=== PATIENT | male | born 1995 | race Caucasian/White ===

== ENCOUNTER 2019-11-10 10:48 | Emergency (ER) | payer OTHER, SELFPAY ==
--- NOTE | 2019-11-10 11:07 | ED.URI ---
HPI - URI/Sore Throat General Chief Complaint: Fever Stated Complaint: Sore throat Source: patient Mode of arrival: ambulatory Limitations: no limitations History of Present Illness HPI Narrative: 24-year-old complains of mild discomfort in the notes of his anterior neck which started 2 or 3 days ago. He had a temperature yesterday of 100.5 and today of 101.5. He the pain is dull and persistent. He denies headache, body ache sore throat shortness of breath nausea vomiting or diarrhea. He states he occasionally has a cough but that is not new. He was in [place] about 6 weeks ago. He has been sick since leading up until 2 or 3 days ago. No contact with Covid-19 infected individuals. Related Data Home Medications Medication Instructions Recorded Confirmed No Home Medications 11/10/19 11/10/19 Allergies Allergy/AdvReac Type Severity Reaction Status Date / Time No Known Allergies Allergy Unverified 04/11/15 16:35 Review of Systems Constitutional: Constitutional: Reports no additional constitutional complaints ENT: Reports system reviewed and no additional complaints, except as documented Respiratory: Respiratory: Reports no additional respiratory complaints Gastrointestinal: Gastrointestinal: Denies loose stools, Denies nausea and Denies vomiting Integumentary/Breasts: Comments: No rash PMFSH Social History Social History (Updated 11/10/19 @ 11:22 by Can Swan MD) Smoking packs per day: 1 Smoking cigarettes per day: 20.0 Years smoked: 4 Smoking pack-years: 4.00 Exam Const: General: cooperative, healthy appearing and no acute distress HENMT: General nose exam: Normal external nose present and Normal nares present Face and sinus: sinuses nontender Mouth: Yes Normal oral and palatal mucosa present and Yes moist mucous membranes Throat: posterior oropharynx normal Neck: Neck: lymphadenopathy (1+ tonsillar nodes, tender) Chest: Chest palpation & inspection: normal inspection of the chest Resp: Effort & Inspection: normal respiratory effort Auscultation: clear to auscultation bilaterally Course Course Emergency Course: No change. Occasional brief cough Vital Signs Vital signs: Vital Signs Temperature 36.6 C 11/10/19 11:18 Pulse Rate 89 11/10/19 11:18 Respiratory Rate 18 11/10/19 11:18 Blood Pressure 169/92 H 11/10/19 11:18 Pulse Oximetry 100 03/24/20 11:18 Temperature 36.6 C 11/10/19 11:18 Pulse Rate 89 11/10/19 11:18 Respiratory Rate 18 11/10/19 11:18 Blood Pressure 169/92 H 11/10/19 11:18 Pulse Oximetry 100 11/10/19 11:18 MDM - URI/Sore Throat MDM Narrative Medical decision making narrative: Not at high risk for Covid19. Labs c/w viral syndrome. Lab Data Attestation: I reviewed the patient's lab results. Labs: Lab Results 11/10/19 Range/Units 11:11 Influenza Type A Ag Negative (Negative) Influenza Type B Ag Positive A (Negative) Grp A Beta Strep Ag Negative Discharge Plan Discharge Clinical Impression: Upper respiratory infection, Adenopathy, cervical Patient Disposition: Home, Self-Care Condition: Stable Instructions: Antibiotic Form, Lymphadenopathy (ED), Viral Syndrome (ED) Additional Instructions: Return if worsening of symptoms or failure to resolve in 5 days. Avoid contact with others when running a fever. Prescriptions: No Action No Home Medications RF: 0 Follow-up/Referrals: Mayra Ervin MD [Primary Care Provider] - Time of Disposition: 12:13
[2019-11-10 11:18] VITALS: BP 169/92; PULSE 89; RESP 18; TEMP 36.6; O2SAT 100
[2019-11-10 11:43] LABS: Influenza Control Valid (Valid)
== END 2019-11-10 12:15 | disposition home or self-care (01) ==
PROVIDERS: Emergency Provider Family Medicine; PCP Internal Medicine
DX: J06.9 Acute upper respiratory infection, unspecified (principal); R59.0 Localized enlarged lymph nodes
CPT/HCPCS: 87081; 87804; 87880; 99283

== ENCOUNTER 2021-03-08 21:01 | Emergency (ER) | payer OTHER, SELFPAY ==
[2021-03-08 21:30] VITALS: BP 123/70; PULSE 72; RESP 20; O2SAT 100
[2021-03-08 21:36] VITALS: BP 114/68; PULSE 74; RESP 20; TEMP 36.7; O2SAT 100
[2021-03-08 21:38] LABS: Basophils Absolute Auto 0.05 K/mm3 (0.00-0.10); Basophils Percent Auto 0.6 % (0.0-1.0); Eosinophils Absolute Auto 0.16 K/mm3 (0.02-0.50); Eosinophils Percent Auto 1.8 % (1.0-6.0); Hematocrit 38.3 % (40.0-54.0); Hemoglobin 13.2 g/dL (14.0-18.0); Immature Granulocyte Absolute 0.03 K/mm3 (0.00-0.00); Immature Granulocyte Percent A 0.3 % (0.0-0.0); Lymphocytes Absolute Auto 2.51 K/mm3 (1.10-4.50); Lymphocytes Percent Auto 28.3 % (18.0-42.0); Mean Corpuscular HGB Conc 34.5 g/dL (32.0-36.0); Mean Corpuscular Hemoglobin 30.7 pg (27.0-31.0); Mean Corpuscular Volume 89.1 fL (78.0-102.0); Mean Platelet Volume 9.9 fl (8.7-11.0); Neutrophils Absolute Auto 5.3 K/mm3 (1.7-7.2); Platelet Count Result 279 K/mm3 (150-420); White Blood Count 8.9 K/mm3 (4.8-10.8)
[2021-03-08 21:44] VITALS: PULSE 73
[2021-03-08 21:52] LABS: Alanine Aminotransferase 26 U/L (16-63); Alkaline Phosphatase 64 U/L (46-116); Anion Gap 15 mmol/L (8-16); Aspartate Amino Transferase 18 U/L (15-37); Bilirubin,Total 0.5 mg/dL (0.00-1.00); Blood Urea Nitrogen 14 mg/dL (7-18); Carbon Dioxide 24 mmol/L (21-32); Chloride 101 mmol/L (98-108); Estimated CRCL calculation 116 ml/min; Estimated Glomerular Filt Rate > 60; Ethanol 153 mg/dL (0-6); Glucose 121 mg/dL (70-99); Osmolality Calculated 291 mOsm/kg (285-295); Sodium 140 mmol/L (136-145); Total Protein 6.4 g/dL (6.4-8.2)
--- NOTE | 2021-03-08 21:54 | ED.SYNCOPE ---
HPI - Syncope General Chief Complaint: Syncope Stated Complaint: AMB Time Seen by Provider: 03/08/21 21:54 Source: patient Mode of arrival: ambulatory Limitations: no limitations History of Present Illness HPI narrative: Patient has no known medical history, except for vasovagal syncope, one episode, many years ago. He was intoxicated with friends, and dry, after working in the sun. He had a brief syncopal episode, less than ten seconds long, and was brought in due to this. Syncope was very brief, accompanied by spontaneous recovery, no injury, no other associated signs or symptoms at all, in the context of alcohol intoxication, which clearly is a precipitating factor. Severity of this syncope was very mild. MD complaint: loss of consciousness and felt faint -: second(s) Prodromal symptoms: lightheaded Context: other (standing with legs locked) Injuries sustained associated with event: none Current symptoms: none Treatments prior to arrival: IV fluids Related Data Home Medications Medication Instructions Recorded Confirmed No Home Medications 11/10/19 03/08/21 Allergies Allergy/AdvReac Type Severity Reaction Status Date / Time No Known Allergies Allergy Unverified 03/08/21 21:43 Review of Systems Constitutional: Constitutional: Reports no additional constitutional complaints Eyes: Eyes: Reports no additional eye complaints ENT: Reports system reviewed and no additional complaints, except as documented Cardiovascular: Cardiovascular: Reports no additional cardiovascular complaints Respiratory: Respiratory: Reports no additional respiratory complaints Gastrointestinal: Gastrointestinal: Reports no additional gastrointestinal complaints Genitourinary: Genitourinary: Reports no additional male genitourinary complaints Musculoskeletal: Musculoskeletal: Reports no additional musculoskeletal complaints Integumentary/Breasts: Skin/Breast: Reports system reviewed and no additional complaints, except as docu Neurologic: Reports system reviewed and no additional complaints, except as documented Psychiatric: Psychiatric: Reports no additional psychiatric complaints Endocrine: Endocrine: Reports no additional endocrine complaints Hematologic/Lymphatic: Hematologic/Lymphatic: Reports no additional hematologic/lymphatic complaints Allergic/Immunologic: Allergic/Immunologic: Reports no additional allergic/immunologic complaints [facility] Past Medical History Medical History Vasovagal syncope Surgical History Surgical History (Updated 03/08/21 @ 22:29 by Melvin Ravi MD) No significant past surgical history Family History Family History (Updated 03/08/21 @ 22:29 by Melvin Ravi MD) Other No significant family history Social History Social History Smoking packs per day: 1 Smoking cigarettes per day: 20.0 Years smoked: 4 Smoking pack-years: 4.00 Gender identity (if verbalized by the patient): Male Exam Const: General: no acute distress and alert Orientation/consciousness: patient oriented x3 HENMT: Head: normal to inspection Ears: external ears normal and TM's normal bilaterally General nose exam: Normal nares present Mouth: Yes Normal oral and palatal mucosa present and Yes moist mucous membranes Throat: posterior oropharynx normal Eyes: Conjunctivae: conjunctivae normal Neck: Neck: normal visual inspection Chest: Chest palpation & inspection: normal inspection of the chest Resp: Effort & Inspection: normal respiratory effort Auscultation: clear to auscultation bilaterally Cardio: Rate: regular rate Rhythm: regular rhythm GI: GI Palp: Yes Soft to palpation (nontender) Auscultation: normal bowel sounds Skin: General skin exam: normal color Neuro: General: patient oriented x3 and moves all extremities Extrem: General: normal to inspection Psych: Appearance:
--- NOTE | 2021-03-08 22:03 | ECG_ITS ---
Measurements Intervals [place] Rate: 58 P: 54 SC: 139 QRS: 69 QRSD: 106 T: 47 QT: 395 QTc: 390 Interpretive Statements SINUS BRADYCARDIA WITH SINUS ARRHYTHMIA BORDERLINE ECG Electronically Signed On 03-09-2021 6:33:02 CDT by Biju Montero D.O.
[2021-03-08 22:29] VITALS: BP 132/78; PULSE 66; RESP 20; TEMP 36.9; O2SAT 100
== END 2021-03-08 22:31 | disposition home or self-care (01) ==
PROVIDERS: Emergency Provider Emergency Medicine; PCP Internal Medicine
DX: R55 Syncope and collapse (principal)
CPT/HCPCS: 36415; 80053; 80307; 85025; 93005; 99282; 99283